=== PATIENT | female | born 1960 | race American Indian/Alaskan Native ===

== ENCOUNTER 2018-04-04 08:57 | Outpatient (CLI) | payer OTHER | END 2018-04-04 08:58 | disposition home or self-care (01) | LOC: RAD 08:57 | DX: Z12.31 Encounter for screening mammogram for malignant neoplasm of breast (principal) ==

== ENCOUNTER 2018-07-17 07:33 | Outpatient (CLI) | payer OTHER | END 2018-07-17 07:34 | disposition home or self-care (01) | LOC: RAD 07:33 ==